=== PATIENT | male | born 1960 | race Caucasian/White ===

== ENCOUNTER → 2017-09-06 | Outpatient (CLI) | payer BC ==
[2017-09-06 11:53] LABS: Appearance,Urine Clear (Clear); Basophils # (A) 0.1 k/uL (0-0.2); Basophils % (A) 1 %; Bilirubin,Urine Negative (Negative); Blood,Urine Negative (Negative); Color,Urine Yellow; Eosinophils # (A) 0.1 k/uL (0-0.7); Eosinophils % (A) 3 %; Glucose,Urine (UA) Trace (Negative); HCT 45.5 % (39.0-53.0); HGB 15.1 gm/dL (13.0-17.5); Ketones,Urine Negative (Negative); Leukocyte Esterase,Urine Negative (Negative); Lymphocytes % (A) 23 %; MCHC 33.1 g/dL (31.0-37.0); MCV 87.7 fL (80.0-100.0); Mean Platelet Volume 6.8; Monocytes # (A) 0.3 k/uL (0-1.0); Monocytes % (A) 7 %; Neutrophils # (A) 2.7 k/uL (1.3-7.7); Neutrophils % (A) 65 %; Nitrite,Urine Negative (Negative); PH, Urine 5.5 (5.0-8.0); Platelet Count 190 k/uL (150-450); Protein,Urine Negative (Negative); RBC 5.19 m/uL (4.30-5.90); RDW 13.3 % (11.5-15.5); Specific Gravity,Urine 1.016 (1.001-1.035); WBC 4.1 k/uL (3.8-10.6)
[2017-09-06 12:00] LABS: INR 1.1 (<1.2); Partial Thromboplastin Time 24.3 sec (22.0-30.0); Prothrombin Time 10.3 sec (9.0-12.0)
[2017-09-06 12:06] LABS: Anion Gap 10 mmol/L; Blood Urea Nitrogen 13 mg/dL (9-20); Calcium 9.7 mg/dL (8.4-10.2); Carbon Dioxide 30 mmol/L (22-30); Chloride 98 mmol/L (98-107); Glucose 169 mg/dL (74-99); Potassium 4.8 mmol/L (3.5-5.1); Sodium 138 mmol/L (137-145)
== END | disposition home or self-care (01) ==
LOC: LABPAT 10:28
PROVIDERS: ATTEND Orthopaedic Surgery Orthopaedic Surgery of the Spine
DX: Z01.812 Encounter for preprocedural laboratory examination (principal); M48.061 Spinal stenosis, lumbar region without neurogenic claudication
CPT/HCPCS: 36415; 80048; 81003; 85025; 85610; 85730; 87070; 93005

== ENCOUNTER 2017-09-16 10:38 | Inpatient (IN) | payer BC ==
[2017-09-04 09:35] VITALS: BMI 27.2
[~2017-09-16 10:38] MED LIST: BACITRACIN 50,000 UNIT, POLYMYXIN B 500,000 UNIT in SODIUM CHLORIDE 0.9% IRRIGATIO 1,00... IRRIGATION ONE; DEXAMETHASONE SOD PHOSPHATE 10 MG/ML 1 ML VIAL IV ONE; MIDAZOLAM 2 MG/2 ML VIAL IV PRN; ONDANSETRON 4 MG/2 ML VIAL IVP ONE; SCOPOLAMINE 1.5MG/72HR PATCH TRANSDERM ONE; ceFAZolin IN SWFI 2 GM/20 ML SYRINGE IVP ONE; fentaNYL (PF) 50 MCG/ML 2 ML AMP IV PRN
[2017-09-16] MEDS: LACTATED RINGERS 1,000 ML IV SCH (11:34)
[2017-09-16 11:37] LABS: Glucose,Whole Blood 156 mg/dL (75-99)
[2017-09-16] MEDS ORDERED: PHENYLEPHRINE-0.9% NACL SYG 1 MG/10 ML SYRINGE ONE (12:18)
[2017-09-16] MEDS ORDERED: GLYCOPYRROLATE 0.2 MG/ML 2 ML VIAL ONE (12:18)
[2017-09-16] MEDS ORDERED: HEPARIN SODIUM,PORCINE 10,000 UNIT/ML 1 ML VIAL ONE (12:18)
[2017-09-16] MEDS ORDERED: SUCCINYLCHOLINE CHLORIDE 100 MG/5 ML SYR IV ONE (12:18)
[2017-09-16] MEDS ORDERED: PROPOFOL 10 MG/ML 20 ML VIAL IV ONE (12:18)
[2017-09-16] MEDS ORDERED: LIDOCAINE 1% INJ 10MG/ML (20 ML MDV) ONE (12:18)
[2017-09-16] MEDS ORDERED: ePHEDrine SULFATE/0.9% NACL/PF 50 MG/5 ML SYRINGE IV ONE (12:18)
[2017-09-16] MEDS ORDERED: MIDAZOLAM 2 MG/2 ML VIAL ONE (12:18)
[2017-09-16] MEDS ORDERED: fentaNYL (PF) 50 MCG/ML 2 ML AMP ONE (12:18)
[2017-09-16] MEDS ORDERED: HYDROmorphone (PF) 1 MG/ML ONE (12:18)
[2017-09-16] MEDS ORDERED: SODIUM CHLORIDE 0.9% IRRIG 1,000 ML BTL IRRIGATION ONE (12:18)
[2017-09-16] MEDS ORDERED: LIDOCAINE 0.5%-EPI 1:200,000 50 ML VIAL SQ ONE ×2 (12:59)
[2017-09-16] MEDS ORDERED: THROMBIN (BOVINE) 5,000 UNIT VIAL MISCELLANE ONE (13:05)
[2017-09-16] MEDS ORDERED: GELATIN SPONGE,ABSORB (SMALL) 1 EACH SPONGE MISCELLANE ONE (13:06)
[2017-09-16] MEDS ORDERED: LACTATED RINGERS 1,000 ML IV ONE (13:30)
[2017-09-16] MEDS ORDERED: BUPIVACAINE (PF) 0.5% 30 ML VIAL SQ ONE (15:40)
--- NOTE | 2017-09-16 16:02 | FL ---
Fluoroscopy HISTORY: Spinal fusion 1minute and 13 seconds fluoroscopy time supplied to the referring clinician. 2 intraoperative C-arm images docum ent the procedure. See dictated report from orthopedic surgery.
--- NOTE | 2017-09-16 16:02 | XR ---
Limited lumbar spine HISTORY: Spinal fusion 2 intraoperative C-arm images document the procedure
[2017-09-16] MEDS ORDERED: HYDROmorphone 0.5 MG/0.5 ML SYRINGE IVP PRN (16:16)
[2017-09-16] MEDS ORDERED: HYDROcodone/APAP 5-325MG 1 EACH TAB PO PRN (16:16)
[2017-09-16] MEDS ORDERED: BENZOCAINE/MENTHOL LOZENG 1 EACH LOZENGE MUCOUS MEM PRN (16:16)
[2017-09-16] MEDS: HYDROmorphone 1 MG/ML 1 ML SYRINGE IVP ONE ×4 (16:19→17:03)
[2017-09-16 16:27] LABS: Glucose,Whole Blood 162 mg/dL (75-99)
--- NOTE | 2017-09-16 16:33 | P.OP ---
Date of Procedure: 09/16/17 Preoperative Diagnosis: Spinal stenosis L3 4 L4 5 Herniated nucleus pulposis L3 4 L4 5 Degenerative disc disease L3 4 L4 5 Lower extremity radiculopathy Postoperative Diagnosis: Same Anesthesia: GETA Pathology: none sent Condition: stable Disposition: PACU Description of Procedure: DESCRIPTION OF PROCEDURE(S): BRIEF OPERATIVE NOTE Preoperative Diagnosis: Spinal stenosis L3 4 L4 5, facet arthrosis L3 4 L4 5, herniated nucleus pulposis L3 4 L4 5, low back pain, lower extremity radiculopathy Postoperative Diagnosis: Same Procedure: Laminectomy and decompression L3 4 L4 5 Minimally invasive Posterior lateral decompression and facet fusion L3 4 L4 5 Minimally invasive Transforaminal lumbar interbody fusion for a 360 fusion L3 4 L4 5 Discectomy for decompression L3 4 L4 5 Placement of interbody graft L3 4 L4 5 Local autogenous bone grafting Harvesting of bone marrow aspirate via The pedicle of L3 vertebral body Use of Cell Saver Use of bone graft extenders Surgeon: Dr. Webb Tufting Machine Operator Single Needle: Renny Del Castillo is present throughout the entire the case persistence during positioning, dissection, exposure, visualization, and all crucial elements of the case as well as closure. Anesthesia: General anesthesia per Dr. Wilkins Estimated blood loss: Approximately 150 mL with symptomatic Cell Saver Complications: None apparent Components implanted: K2M minimally invasive Allen pedicle screw system with use of 6 screws measuring 6.5 x 50 mm with 2 rods and 1 Moro cage as well as 1 Hudson cage with 1 osteoamp sponge and 30 mL of DBX bone fibers to supplemental local autogenous and bone marrow aspirate graft Disposition: To recovery room in good stable condition. OPERATIVE INDICATIONS The patient has had long-standing issues in their lower back and lower extremities. His found have significant stenosis centrally in the bilateral neural foramen at L3 4 and L4 5 with disc herniations and facet arthrosis and thickening of the ligamentum flavum. He had severe disc degeneration with disc height loss. His imaging correlated well with his low back and lower extremity symptoms. He is not having any benefit despite aggressive conservative treatment and has having worsening of his overall function due to his back and lower extremity issues. The patient has been through conservative treatment. We discussed various treatment options including surgery, and the patient wishes to proceed with surgery We discussed the risk, patient's alternatives and benefits of surgery including but not limited to, risk of bleeding risk of infection, risk of need for further surgery, risk of decreased, loss of motion, muscle function, malunion nonunion, hardware failure, nerve damage, paralysis, heart attack, blindness and . OPERATIVE SUMMARY After discussing all the risks, patient alternatives and benefits at length, the patient elected to proceed with surgical intervention, signed informed consent, and presented for their procedure. The patient was seen and examined in the preoperative holding area and the surgical site was marked. The patient was given antibiotics and brought to the operating room. The patient was sedated and intubated by anesthesia in standard fashion. The patient was positioned on to the operating room table in a prone position on the appropriate frame which was well-padded and well molded. We were careful to pad any bony prominences and pressure points. We were careful to maintain the patient's cervical spine and good neutral alignment and position throughout. The patient was prepped and draped in a normal standard fashion. An appropriate timeout and keystone protocol performed. We were able to proceed with the surgery. The local wound area was infiltrated with local anesthetic. I was able utilize C-arm guidance to establish appropriate position over the pedicles bilaterally at the appropriate levels at L3 4 and 5. With the appropriate levels confirmed was able to make small stab incisions over the appropriate pedicle sites bilaterally. Utilizing C-arm in his house able to establish a Jamshidi needle over the lateral aspect of the pedicle and advanced the trocar into the pedicle being careful not to breech superiorly inferiorly medially or laterally. Position was confirmed regularly with AP and lateral images on C-arm. I was able to establish the trocar into the pedicle appropriately into the posterior aspect of the vertebral body bilaterally at the appropriate levels. This was done at each of the pedicle positions and each of the vertebrae. At the pedicle of L3 was able to aspirate bone marrow aspirate approximately 20 mL for use later in the case for supplementation of the bone graft. I was able place the guidewire into the trocar and into the vertebral body appropriately under C-arm guidance. Dissection was taken down over the wire to the appropriate starting position for the screw placed. The appropriate length screw was chosen, threaded over the guidewire and screwed appropriately into the pedicle and vertebral body under C-arm guidance in excellent alignment and position with good bony purchase. This is done at each of the screw sites at the appropriate levels at L3 4 and 5 bilaterally. With the screws intact I extended the incision to connect the screw hole sites on the most symptomatic side on the right. I dissected down to establish access over the pars and lamina to the base of the spinous process. I was able to expose the facet joint. The capsule the facet was taken down and showed some facet arthrosis at the joint. I was able to use a combination of curettes and Kerrison rongeurs and a high-speed drill to take down the facet joint and do a facetectomy. Partial laminectomy was also performed. I was able get excellent foraminal decompression and central decompression with undermining across midline to perform a laminectomy centrally and contralaterally. As able get good central decompression. The ligamentum flavum was taken down to further decompress centrally and at bilateral neural foramen. I was able to expose the disc space and visualize the traversing nerve root. Note was made of some disc protrusion at the level causing further compression of the nerve root. I was able to establish a annulotomy at the appropriate level protecting soft tissue and neural structures. Note was made of some disc desiccation at the disc. I performed a complete discectomy with accommodation of curettes and rasps and scrapers. During the discectomy provided further decompression as well. I was able get good endplate preparation at the disc space. I sized for the appropriate size interbody spacer protecting the soft tissue and neural structures. The wound was copiously irrigated and suctioned dry. There is no evidence of any dural tear or leak. I was able to pack the disc space with local autogenous bone graft as well as a small amount of bone graft which was also placed into the interbody cage itself. Protecting the soft tissue structures and neural structures I was able place the interbody cage in good alignment and good position with good fit and fill at the interbody space. His issues was confirmed with C-arm guidance. Good hemostasis maintained. There is no evidence of any dural tear or leak. The wound was irrigated and suctioned dry. This was done first at L 45 and then at L3 4 With the hardware intact, intraoperative C-arm imaging was again taken which showed good alignment and position of the hardware at the appropriate levels at L3 4 and 5. We were then able to measure, contour and place the rods and appropriate hardware bilaterally. I was able to place capcrews, tighten them down, and torque them with the torque screwdriver appropriately. With this intact I was able to place the local autogenous bone graft with additional bone graft enhancer as necessary into the posterior lateral gutters over the decorticated transverse processes. The remainder of the bone graft was placed over the facet joint on the contralateral side after taking down the facet joint capsule. With the bone graft intact, a stable construct, and good decompression at the appropriate levels, of L3 4 and L4 5, we were able to proceed with closure. Good hemostasis was maintained. There is no evidence of dural tear or leak. The fascia was closed for a watertight closure. he subcuticular tissue was closed with absorbable suture. The wound was cleaned and dried and dressed with the appropriate dressing. The drapes were broken down. The patient was gently rolled back onto their hospital bed being careful to maintain their cervical spine and good neutral alignment and position. They were woken up by anesthesia, extubated, and brought to the recovery room in good stable condition. The patient will be admitted to the hospital for appropriate postoperative care , medical management and monitoring. We will continue to follow them closely about the postoperative course.
[2017-09-16] MEDS: HYDROcodone/APAP 5-325MG 1 EACH TAB PO PRN ×2 (17:44→22:24)
[2017-09-16] MEDS: SODIUM CHLORIDE 0.9% 1,000 ML IV SCH (18:13)
[2017-09-16] MEDS: HYDROmorphone 0.5 MG/0.5 ML SYRINGE IVP PRN (19:10)
[2017-09-16 20:15] LABS: Glucose,Whole Blood 193 mg/dL (75-99)
[2017-09-16] MEDS: metFORMIN 500 MG TAB PO SCH (20:30)
[2017-09-16] MEDS: ceFAZolin IN SWFI 2 GM/20 ML SYRINGE IVP SCH (20:31)
[2017-09-16] MEDS: INSULIN ASPART 100 UNIT/ML 1 ML 10 ML VIAL SQ SCH (22:24)
[2017-09-17] MEDS: HYDROmorphone 0.5 MG/0.5 ML SYRINGE IVP PRN ×4 (01:27→19:37)
[2017-09-17] MEDS: HYDROcodone/APAP 5-325MG 1 EACH TAB PO PRN ×4 (04:11→20:51)
[2017-09-17] MEDS: ceFAZolin IN SWFI 2 GM/20 ML SYRINGE IVP SCH (06:16)
--- NOTE | 2017-09-17 06:24 | CONS ---
CONSULTATION DATE OF CONSULTATION: 09/16/2017 REASON FOR CONSULTATION: Medical management requested by Dr. Webb. CONSULTATION: This is a pleasant 56-year-old patient of Dr. St. The patient did undergo lumbar surgery L3 to L5. Post procedure, patient having significant pain. The patient's symptoms started around April with significant pain in the lower back with pain radiating down. Because symptoms are uncontrolled, patient went for the above surgery. Chronic stable medical conditions include diabetes, hyperlipidemia, and arthritis. The patient denies any nausea, vomiting. No cardiac symptoms. No respiratory symptoms. Lying in bed. REVIEW OF SYSTEMS: CONSTITUTIONAL: None. HEENT: None. RESPIRATORY: None. CARDIOVASCULAR: None. GASTROINTESTINAL: None. GENITOURINARY: None. MUSCULOSKELETAL: Low back pain. DERMATOLOGICAL: None. HEMATOLOGIC: None. LYMPHATIC: None. PSYCHIATRY: A bit anxious. NEUROLOGICAL: The patient had radiating pain prior to surgery. PAST MEDICAL HISTORY: Diabetes mellitus type 2, DVT following an accident, hyperlipidemia, osteoarthritis. PAST SURGICAL HISTORY: Hernia repair. SOCIAL HISTORY: The patient smokes cigarettes until 1991 then started smoking cigars, 1 cigar a day. Alcohol occasional. . 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 FAMILY HISTORY: Colon cancer. HOME MEDICATIONS: 1. Janumet one tab p.o. b.i.d. 2. Glucotrol 10 mg p.o. daily. 3. Levemir 25 units p.o. daily. 4. Celebrex 200 mg at bedtime. ALLERGIES: None. PHYSICAL EXAMINATION: On examination, temperature 98.5, pulse 108, respirations 16, blood pressure 126/61, pulse ox 94% on room air. GENERAL APPEARANCE: Average build, lying in bed, somewhat uncomfortable. EYES: Pupils equal. Conjunctivae normal. HENT: External appearance of nose and ears normal. Oral cavity normal. NECK: JVD not raised. Mass not palpable. RESPIRATORY: Effort . LUNGS: Fair entry. CARDIOVASCULAR: First and second sounds normal. No edema. ABDOMEN: Soft, nontender. Liver and spleen not palpable. LYMPHATIC: No lymph nodes palpable in neck or axillae. PSYCHIATRY: Alert and oriented x3. Mood and affect anxious appearing. NEUROLOGICAL: Pupils equal. Cranial nerves grossly intact. Power and sensation grossly intact. The patient has a dressing over the lower spine. INVESTIGATIONS: Accu-Cheks 156, 162, 193. ASSESSMENT: 1. Lumbar surgery L3 to L5 area with radiculopathy prior to surgery. 2. Diabetes mellitus type 2. 3. Hyperlipidemia. 4. Osteoarthritis of the lumbar spine. PLAN: Home medications are resumed. Patient getting Dilaudid and Lyon per Surgery. Accu- Cheks are to be followed. We will hold off patient's Glucotrol for right now until patient's oral intake improves. Keep the patient on Glucophage and Levemir. The patient has got Venodyne boots for DVT prophylaxis. Care was discussed with the patient. Thank you Dr. Webb. MMJULIAL / YOMAIRAN: [id number] /
[2017-09-17] MEDS: ONDANSETRON 4 MG/2 ML VIAL IVP PRN (07:13)
[2017-09-17 07:25] LABS: Glucose,Whole Blood 224 mg/dL (75-99)
[2017-09-17] MEDS: NICOTINE 14MG/24HR PATCH TRANSDERM SCH ×2 (07:28→07:55)
[2017-09-17] MEDS: LACTATED RINGERS 1,000 ML IV SCH (07:28)
[2017-09-17] MEDS: SODIUM CHLORIDE 0.9% 1,000 ML IV SCH (07:29)
[2017-09-17 07:31] LABS: Basophils % (A) 0 %; Eosinophils % (A) 0 %; HCT 37.3 % (39.0-53.0); HGB 12.7 gm/dL (13.0-17.5); Lymphocytes # (A) 0.7 k/uL (1.0-4.8); Lymphocytes % (A) 10 %; MCH 29.4 pg (25.0-35.0); MCHC 34.1 g/dL (31.0-37.0); MCV 86.2 fL (80.0-100.0); Mean Platelet Volume 6.6; Monocytes # (A) 0.5 k/uL (0-1.0); Monocytes % (A) 7 %; Neutrophils # (A) 5.1 k/uL (1.3-7.7); Neutrophils % (A) 81 %; Platelet Count 152 k/uL (150-450); RBC 4.33 m/uL (4.30-5.90); WBC 6.3 k/uL (3.8-10.6)
[2017-09-17 07:45] LABS: Anion Gap 13 mmol/L; Blood Urea Nitrogen 13 mg/dL (9-20); Calcium 8.7 mg/dL (8.4-10.2); Carbon Dioxide 25 mmol/L (22-30); Chloride 99 mmol/L (98-107); Glucose 229 mg/dL (74-99); Potassium 4.3 mmol/L (3.5-5.1); Sodium 137 mmol/L (137-145)
[2017-09-17] MEDS: INSULIN ASPART 100 UNIT/ML 1 ML 10 ML VIAL SQ SCH ×3 (07:46→17:44)
[2017-09-17] MEDS: LINAGLIPTIN 5 MG TABLET PO SCH (07:55)
[2017-09-17] MEDS: metFORMIN 500 MG TAB PO SCH ×2 (07:55→20:48)
[2017-09-17] MEDS: SENNOSIDES-DOCUSATE SODIUM 1 EACH TAB PO SCH (07:56)
[2017-09-17] MEDS: INSULIN DETEMIR 100 UNIT/ML 10 ML VIAL SQ SCH (08:09)
--- NOTE | 2017-09-17 08:20 | P.PN ---
Progress Note - Text Progress Note Date: 09/17/17 Orthopedic Spine Patient is a pleasant 56-year-old male who is seen and examined at the bedside following posterior lateral decompression and fusion performed yesterday. Patient states he is doing ok postsurgically. Currently does not complain o fever or chills. He was having some nausea this morning and has received Zofran. He is having some improvement. He currently denies any significant lower extremity radiculopathy bilaterally. He does have some chronic weakness with his left lower extremity. He states his most significant symptom is back pain at the postoperative sites. Patient states pain has been adequately controlled. Patient is eating and voiding freely without difficulty. Espitia catheter was discontinued yesterday and he was able to urinate at the bedside. Physical Exam Lumbar Fusion: Status post surgical day number 1 Patient is awake, alert, and oriented 3 Vital signs stable Good chest excursion with deep inspiration and expiration Abdomen soft nontender Dorsiflexion, plantarflexion, and extensor hallucis longus positive sustained bilaterally No signs or symptoms of DVT; no calf pain; pneumatic cuffs intact bilateral lower extremities Dressing is clean, dry, and intact; no erythema, purulence, or signs of infection Neurovascularly intact bilaterally lower extremities Assessment: Minimally invasive posterior lateral decompression and fusion L3-4 and L4-5 Transforaminal lumbar interbody fusion L3-4 and L4-5 Low back pain L3-4 and L4-5 herniated nucleus pulposus, facet arthrosis, and spinal canal stenosis Plan: 1. Ambulate as tolerated; work with Physical Therapy to increase mobilization 2. Continue pain control with IV and oral medications 3. Dressing to remain intact with Telfa and Tegaderm 4. Medical management can continue to manage patient for patient's other medical issues 5. We will continue to follow the patient closely; if he continues to improve postsurgically, may plan for discharge home as early as tomorrow, 09/18/2017 or , 09/19/2017 6. Patient can follow-up with Renny Astorga PA-C or Dr. Oskar Webb at [facility] in 2-3 weeks following discharge
[2017-09-17] MEDS ORDERED: glipiZIDE 10 MG TAB PO SCH (09:00)
[2017-09-17] MEDS: DIAZEPAM 5 MG TAB PO PRN (10:17)
[2017-09-17 11:35] LABS: Glucose,Whole Blood 234 mg/dL (75-99)
[2017-09-17] MEDS ORDERED: HYDROcodone/APAP 5-325MG 1 EACH TAB ONE (15:00)
[2017-09-17] MEDS ORDERED: DIAZEPAM 5 MG TAB ONE (15:00)
[2017-09-17] MEDS ORDERED: HYDROmorphone 0.5 MG/0.5 ML SYRINGE ONE (15:00)
[2017-09-17 17:19] LABS: Glucose,Whole Blood 203 mg/dL (75-99)
[2017-09-17 21:19] LABS: Glucose,Whole Blood 142 mg/dL (75-99)
[2017-09-18] MEDS: HYDROcodone/APAP 5-325MG 1 EACH TAB PO PRN ×4 (01:40→21:54)
[2017-09-18] MEDS: HYDROmorphone 0.5 MG/0.5 ML SYRINGE IVP PRN ×2 (03:16→10:24)
--- NOTE | 2017-09-18 05:45 | PN ---
PROGRESS NOTE DATE OF SERVICE: 09/17/2017. PRESENTING COMPLAINT: Lumbar surgery. INTERVAL HISTORY: Patient is status post lumbar surgery. Pain is still present. is present. Patient did sit up on a chair. The patient did make some urine. Not much of an appetite. Back pain is present. Slight nausea. REVIEW OF SYSTEMS: Done for constitutional, cardiovascular, GI, pulmonary, musculoskeletal; relevant findings as above. CURRENT MEDICATIONS: Reviewed. EXAMINATION: Temperature 99.7, pulse 90, respirations 18, blood pressure 103/70, pulse ox 92% on room. GENERAL APPEARANCE: Sitting up in a chair, awake. EYES: Pupils equal. Conjunctivae normal. HEENT: External ears and nose normal. Oral cavity normal. NECK: JVD no raised. Mass not palpable. Respiratory effort normal. LUNGS: Clear. CARDIOVASCULAR: 1st and 2nd sounds normal. No edema. ABDOMEN: Soft, nontender. Liver and spleen not palpable. PSYCHIATRY: Alert and oriented x3. Mood and affect normal. INVESTIGATIONS: Hemoglobin 12.7. Accu-Cheks noted, 234 and 234. ASSESSMENT: 1. Lumbar surgery L3 to L5 area with radiculopathy prior to surgery. 2. Diabetes mellitus type 2, uncontrolled, with sugars running above 200. 3. Hyperlipidemia. 4. Secondary osteoarthritis of the lumbar spine. PLAN: Continue current medication and treatment plan. We will resume patient's glucose protocol starting in the morning as the patient's appetite has picked up. Care was discussed with the patient and . Patient encouraged to ambulate. MMODL / IJN: [id number] /
[2017-09-18] MEDS: ONDANSETRON 4 MG/2 ML VIAL IVP PRN (06:00)
[2017-09-18] MEDS: LACTATED RINGERS 1,000 ML IV SCH (06:38)
[2017-09-18] MEDS: SODIUM CHLORIDE 0.9% 1,000 ML IV SCH ×3 (06:38→23:18)
--- NOTE | 2017-09-18 07:00 | P.PN ---
Progress Note - Text Progress Note Date: 09/18/17 Postoperative day #2 Patient is seen and examined today at bedside. The patient has some pain around the surgical site as expected. Pain is being controlled with medication. He is able to get up out of the bed to a chair with some assistance and has been able to the chair adequately. He is able to void when he is standing up. He is tolerating his diet appropriately. Physical Exam Afebrile with stable vital signs. His color is good Abdomen is soft nontender. Chest has good excursion deep and space expiration The incision site is clean dry and intact. No erythema there is no purulence. There is no drainage on the dressing. It is clean and dry. There is no safe and swelling. There is no fluid collection. Extremities have not had neurologic change from prior to surgery. He has sustained dorsal flexion plantarflexion and EHL hip flexion and knee extension intact. Calves and thighs were soft nontender without evidence of DVT. Assessment/Plan Postoperative day #2 status post minimally invasive decompression fusion L3 4 L4 5 for his spinal stenosis and lower extremity radiculopathy Patient is progressing as expected from the surgery. His symptoms at his legs have made some improvement but he is having significant pain in his back so far. He is actually moving fairly well with assistance getting in and out of bed and able to sit forward and move his legs quite well. His pain is being controlled adequately with oral and IV medication. I have sent in a Senatobia prescription referral medication of Senatobia when he goes home as well as a muscle relaxant, Flexeril. We will continue to increase the patient's mobilization with therapy. We will continue pain control with oral or IV medications. We'll continue to follow patient closely. He talks about smoking scar day and I advised him that this does give him significant risk had worsening his outcome with regular smoking. We discussed smoking cessation and He understands this. Hopefully he will be able to be discharged home tomorrow.
[2017-09-18 07:01] LABS: Glucose,Whole Blood 180 mg/dL (75-99)
[2017-09-18] MEDS: INSULIN ASPART 100 UNIT/ML 1 ML 10 ML VIAL SQ SCH ×3 (07:47→17:40)
[2017-09-18] MEDS: NICOTINE 14MG/24HR PATCH TRANSDERM SCH (09:06)
[2017-09-18] MEDS: LINAGLIPTIN 5 MG TABLET PO SCH (09:06)
[2017-09-18] MEDS: INSULIN DETEMIR 100 UNIT/ML 10 ML VIAL SQ SCH (09:06)
[2017-09-18] MEDS: metFORMIN 500 MG TAB PO SCH ×2 (09:06→21:46)
[2017-09-18] MEDS: SENNOSIDES-DOCUSATE SODIUM 1 EACH TAB PO SCH (09:06)
[2017-09-18 11:52] LABS: Glucose,Whole Blood 180 mg/dL (75-99)
[2017-09-18] MEDS: MAGNESIUM HYDROXIDE 2,400 MG/10 ML CUP PO PRN (12:32)
[2017-09-18 17:24] LABS: Glucose,Whole Blood 132 mg/dL (75-99)
--- NOTE | 2017-09-18 19:55 | PN ---
PROGRESS NOTE DATE OF SERVICE: 09/18/2017 PRESENTING COMPLAINT: Lumbar surgery. INTERVAL HISTORY: Patient is status post lumbar surgery. Pain is better controlled. Up in the hallway with a walker, eating some light diet. REVIEW OF SYSTEMS: Done for constitutional, cardiovascular, GI, pulmonary, musculoskeletal; relevant findings as above. CURRENT MEDICATIONS: Reviewed. EXAMINATION: Temperature 98.7, pulse 95, respirations 16, blood pressure 112/78, pulse ox 97% on room air. GENERAL APPEARANCE: Comfortable. EYES: Pupils equal. Conjunctivae normal. HEENT: External nose and ears normal. Oral cavity normal. NECK: JVD not raised. Mass not palpable. RESPIRATORY: Effort normal. Lungs are clear. CARDIOVASCULAR: First and second sounds normal. No edema. ABDOMEN: Soft, nontender. Liver and spleen not palpable. PSYCHIATRY: Alert and oriented x3. Mood and affect normal. INVESTIGATIONS: Accu-Cheks are noted. ASSESSMENT: 1. Lumbar surgery, L3-L5 area with radiculopathy prior to surgery. 2. Diabetes mellitus type 2, uncontrolled. The sugars have been running above 200. 3. Hyperlipidemia. 4. Severe osteoarthritis of the lumbar spine. PLAN: Continue current medication and treatment plan. The patient is stable. MMODL / IJN: [id number] /
[2017-09-18 20:57] LABS: Glucose,Whole Blood 139 mg/dL (75-99)
[2017-09-19] MEDS: HYDROcodone/APAP 5-325MG 1 EACH TAB PO PRN ×4 (03:06→15:15)
[2017-09-19 07:04] LABS: Glucose,Whole Blood 107 mg/dL (75-99)
[2017-09-19] MEDS: LACTATED RINGERS 1,000 ML IV SCH (07:14)
[2017-09-19] MEDS: INSULIN ASPART 100 UNIT/ML 1 ML 10 ML VIAL SQ SCH ×3 (07:14→17:34)
[2017-09-19 07:37] VITALS: BP 121/79; PULSE 95; RESP 18; TEMP 98.5
[2017-09-19] MEDS ORDERED: BISACODYL 10 MG SUPP RECTAL STA (08:13)
[2017-09-19] MEDS: NICOTINE 14MG/24HR PATCH TRANSDERM SCH (08:23)
--- NOTE | 2017-09-19 08:26 | P.PN ---
Subjective Progress Note Date: 09/19/17 Principal diagnosis: Lumbar fusion Patient is s/p lumbar fusion. He complains of pain in the abdomen and distension. Patient has not yet had a bowel movement. Vital signs stable. Objective - Vital Signs Vital signs: Vital Signs Temp 98.5 F 09/19/17 07:37 Pulse 95 09/19/17 07:37 Resp 18 09/19/17 07:37 BP 121/79 09/19/17 07:37 Pulse Ox 99 09/19/17 07:37 Intake & Output 09/18/17 09/19/17 09/19/17 18:59 06:59 18:59 Intake Total 500 480 600 Output Total 1400 Balance 500 -920 600 Intake: Oral 500 480 600 Output: Urine 1400 Other: Voiding Method Urinal Toilet Urinal Urinal # Voids 3 1 - Exam Abdomen is firm and distended. Surgical dressing clean, dry, intact. No notable neurologic deficits to lower extremities bilaterally. - Labs CBC & Chem 7: 09/17/17 06:40 09/17/17 06:40 Labs: Abnormal Lab Results - Last 24 Hours (Table) 09/18/17 09/18/17 09/18/17 Range/Units 11:44 17:20 20:44 POC Glucose (mg/dL) 180 H 132 H 139 H (75-99) mg/dL 09/19/17 Range/Units 06:50 POC Glucose (mg/dL) 107 H (75-99) mg/dL Assessment and Plan (1) S/P lumbar spinal fusion Current Visit: Yes Status: Acute Code(s): Z98.1 - ARTHRODESIS STATUS SNOMED Code(s): 45169278604172 (2) Lumbar stenosis Current Visit: Yes Status: Acute Code(s): M48.061 - SPINAL STENOSIS, LUMBAR REGION WITHOUT NEUROGENIC JERO SNOMED Code(s): 25964653 Plan: Awaiting for patient to have a bowel movement. He may be discharged if able to have a bowel movement and abdomen no longer painful and distended.
[2017-09-19] MEDS: INSULIN DETEMIR 100 UNIT/ML 10 ML VIAL SQ SCH (08:27)
[2017-09-19] MEDS: LINAGLIPTIN 5 MG TABLET PO SCH (08:28)
[2017-09-19] MEDS: metFORMIN 500 MG TAB PO SCH (08:28)
[2017-09-19] MEDS: SENNOSIDES-DOCUSATE SODIUM 1 EACH TAB PO SCH (08:29)
[2017-09-19] MEDS: DIAZEPAM 5 MG TAB PO PRN ×2 (08:53→15:16)
[2017-09-19 11:06] LABS: Glucose,Whole Blood 136 mg/dL (75-99)
[2017-09-19] MEDS: MAGNESIUM HYDROXIDE 2,400 MG/10 ML CUP PO PRN (11:52)
[2017-09-19] MEDS: SODIUM CHLORIDE 0.9% 1,000 ML IV SCH (12:09)
--- NOTE | 2017-09-19 17:02 | P.DS ---
Providers Date of admission: 09/16/17 10:38 Expected date of discharge: 09/19/17 Attending physician: Nunu Webb Consults: 09/16/17 16:16 Consult Physician Routine Consulting Provider: Indra St Consult Reason/Comments: Medical management Do you want consulting provider notified?: Yes 09/16/17 17:05 Consult Physician Routine Consulting Provider: Adam Santoyo Consult Reason/Comments: medical management Do you want consulting provider notified?: Yes Primary care physician: Indra St - Discharge Diagnosis(es) (1) S/P lumbar spinal fusion Current Visit: Yes Status: Acute (2) Lumbar stenosis Current Visit: Yes Status: Acute Hospital Course: This is a 56-year-old male who is admitted to [facility] on 04/2017 for posterior lumbar decompression and fusion with transforaminal interbody fusion L3 4, L4 5. The patient is doing well postoperatively. He did have some abdominal distention this morning on postop day 3 which was resolved with Dulcolax suppository and milk of magnesia. He has had 2 bowel movements and is passing gas. He complains of no neurologic deficits to the lower extremities. He has no fever or chills. He reports no problems or concerns at time of discharge. He is ambulating well with his walker. Plan - Discharge Summary Discharge Rx Participant: Yes New Discharge Prescriptions: New HYDROcodone/APAP 5-325MG [Monroe 5] 1 - 2 each PO Q4H #42 tab Cyclobenzaprine [Flexeril] 10 mg PO TID PRN #60 tab PRN Reason: Spasms No Action Insulin Detemir [Levemir] 25 unit SQ QAM sitaGLIPtin PHOS/metFORMIN HCL [Janumet 50-1,000 mg Tablet] 1 tab PO BID glipiZIDE [Glucotrol] 10 mg PO QAM Celecoxib [CeleBREX] 200 mg PO HS Cholesterol Med-Unk Name/Dose 1 tab PO DAILY Discharge Medication List Celecoxib [CeleBREX] 200 mg PO HS 09/04/17 [History] Cholesterol Med-Unk Name/Dose 1 tab PO DAILY 09/04/17 [History] Insulin Detemir [Levemir] 25 unit SQ QAM 09/04/17 [History] glipiZIDE [Glucotrol] 10 mg PO QAM 09/04/17 [History] sitaGLIPtin PHOS/metFORMIN HCL [Janumet 50-1,000 mg Tablet] 1 tab PO BID [History] Cyclobenzaprine [Flexeril] 10 mg PO TID PRN #60 tab 09/18/17 [Rx] HYDROcodone/APAP 5-325MG [Mon[place] 5] 1 - 2 each PO Q4H #42 tab 09/18/17 [Rx] Follow up Appointment(s)/Referral(s): [facility] DO [REFERRING] - 10/01/17 9:30 am Renny Astorga PAC [PHYSICIAN JOINT SETTER] - 09/30/17 9:00 am (Patient may follow-up with Renny Astorga PA-C or Dr. Oskar Webb at [facility] in 2-3 weeks following discharge. ) Activity/Diet/Wound Care/Special Instructions: 1. Patient may shower with Tegaderm dressing intact. 2. Patient may remove Tegaderm dressing in 3 days and shower without a dressing at that time. 3. Patient should keep Steri-Strips intact and allow them to fall off naturally. 4. Patient should refrain from driving until at least after their first follow- up appointment in the office. 5. Patient should avoid excessive bending, twisting, and lifting; no lifting greater than 10 pounds 6. Take medications as prescribed 7. Do not soak in tub Discharge Disposition: HOME SELF-CARE
[2017-09-19 17:18] LABS: Glucose,Whole Blood 126 mg/dL (75-99)
--- NOTE | 2017-09-20 06:15 | PN ---
PROGRESS NOTE DATE OF SERVICE: 09/19/2017 PRESENTING COMPLAINT: Lumbar surgery. INTERVAL HISTORY: He is status post lumbar surgery, doing much better. Pain is better controlled. I saw the patient this morning. Patient started to have a bowel movement. Did walk in the hallway. Did tolerate a diet. No trouble making urine. REVIEW OF SYSTEMS: Review of systems done for constitutional, cardiovascular, GI, pulmonary, musculoskeletal; relevant findings as above. CURRENT MEDICATIONS: Current medications are reviewed. PHYSICAL EXAMINATION: On examination, temperature 98.5, pulse 95, respirations 18, blood pressure 120/79, pulse ox 99% on room air. GENERAL APPEARANCE: Sitting up, comfortable. EYES: Pupils equal. Conjunctivae normal. HENT: External appearance of nose and ears normal. Oral cavity normal. NECK: JVD not raised. Mass not palpable. RESPIRATORY: Effort . Lungs are clear. CARDIOVASCULAR: First and second sounds normal. No edema. ABDOMEN: Soft, nontender. Liver and spleen not palpable. PSYCHIATRY: Alert and oriented x3. Mood and affect normal. INVESTIGATIONS: Accu-Cheks noted. ASSESSMENT: 1. Lumbar surgery with radiculopathy prior to surgery doing better. 2. Diabetes mellitus type 2, on oral hypoglycemic. 3. Hyperlipidemia. 4. Severe osteoarthritis of the lumbar spine. PLAN: Patient overall doing better. After discharge should follow with the family doctor. Thank you Dr. Webb. HERMINIO / HARRIET: [id number] /
--- NOTE | 2017-09-20 11:00 | CDI ---
Last Revision, February 2017 Documentation Clarification Form Date: 09/20/17 From: Archana Ray Chinyere Penn, Chief Medical Physicist Hours-8:30 am & 5 pm M-[facility] Admit Date: 09/16/2017 Patient Name: Bryce Minor Visit Number: [id number] Discharge Date: 09/19/17 ATTENTION: The Clinical Documentation Specialists (CDI) and [facility] Coding Staff appreciate your assistance in clarifying documentation. Please respond to the clarification below the line at the bottom and electronically sign. The CDI & [facility] Coding staff will review the response and follow-up if needed. Please note: Queries are made part of the Legal Health Record. If you have any questions, please contact the author of this message via ITS. Dr. Adam Santoyo The patient has diabetes Type II uncontrolled, as indicated in 09/17 & 09/18 PNs. POC glucose: 229 Glucose: 156, 162, 193, 224, 234, 203, 142, 180, 180, 132, 139, 107, 136, 126 Treatment: Cover with adult NovoLOG sliding scale Per [facility] 2016 - query the provider for clarification whether the patient has hyperglycemia or hypoglycemia so that the appropriate code may be reported - uncontrolled diabetes indicates that the patient's blood sugar is not at an acceptable level, because it is either too high or too low. In order to capture the severity of Illness and necessary documentation specificity, please clarify if Type 2 uncontrolled diabetes is: Hyperglycemia Hypoglycemia Other, please specify Unable to Determine Please continue to document in your progress notes and discharge summary in order to capture severity of illness and risk of mortality. Include clinical findings that support your diagnosis. MTDD
== END 2017-09-19 18:16 | disposition home or self-care (01) | DRG 455 ==
LOC: 2ORMAIN 10:38 → 3SUR 16:01
PROVIDERS: ADMIT Orthopaedic Surgery Orthopaedic Surgery of the Spine; ATTEND Orthopaedic Surgery Orthopaedic Surgery of the Spine
PROC: 0SG1071 Fusion of 2 or more Lumbar Vertebral Joints with Autologous Tissue Substitute, Posterior Approach, Posterior Column, Open Approach (ICD-10-PCS; 2017-09-16)
PROC: 0ST20ZZ Resection of Lumbar Vertebral Disc, Open Approach (ICD-10-PCS; 2017-09-16)
PROC: 07DS3ZZ Extraction of Vertebral Bone Marrow, Percutaneous Approach (ICD-10-PCS; 2017-09-16)
PROC: 4A11X4G Monitoring of Peripheral Nervous Electrical Activity, Intraoperative, External Approach (ICD-10-PCS; 2017-09-16)
PROC: 30233N0 Transfusion of Autologous Red Blood Cells into Peripheral Vein, Percutaneous Approach (ICD-10-PCS; 2017-09-16)
PROC: 0SG10AJ Fusion of 2 or more Lumbar Vertebral Joints with Interbody Fusion Device, Posterior Approach, Anterior Column, Open Approach (ICD-10-PCS; principal; 2017-09-16 12:30)
DX: M48.062 Spinal stenosis, lumbar region with neurogenic claudication (principal); E78.5 Hyperlipidemia, unspecified; M51.16 Intervertebral disc disorders with radiculopathy, lumbar region; M43.16 Spondylolisthesis, lumbar region; M47.26 Other spondylosis with radiculopathy, lumbar region; E11.65 Type 2 diabetes mellitus with hyperglycemia; F17.290 Nicotine dependence, other tobacco product, uncomplicated; Z71.6 Tobacco abuse counseling; Z79.4 Long term (current) use of insulin; Z79.899 Other long term (current) drug therapy; Z86.718 Personal history of other venous thrombosis and embolism; Z83.3 Family history of diabetes mellitus; Z82.49 Family history of ischemic heart disease and other diseases of the circulatory system; Z80.0 Family history of malignant neoplasm of digestive organs
CPT/HCPCS: 72100; 80048; 85025; 86850; 86891; 86900; 86901